=== PATIENT | female | born 1975 | race Caucasian/White ===

== ENCOUNTER → 2016-11-30 | Outpatient (CLI) | payer OTHER ==
--- NOTE | 2016-12-01 09:38 | MA ---
Digital screening mammogram bilateral with tomosynthesis 11/30/2016 8:21 History:Routine screening. Comparison: October 03, 2015, September 28, 2014. Technique: Standard digital cephalocaudal and tomosynthesis mediolateral oblique projections are obt ained. This examination is processed by the [employer] computer-aided detection system. Findings: Breast density: Type II No spiculated masses, malignant type microcalcifications, or mammographic features of malignancy michael ntified. IMPRESSION: No mammographic features of malignancy. BI-RADS 1: Negative mammogram. Recommendation: Routine screening mammography in one year. [facility] will send a result letter to the patient. Negative mammography should not preclude additional workup of a clinically suspicious finding. The patient's information is entered into a reminder system with a target due date for her next mammo gram.
== END ==
LOC: FIMAGING 08:19
DX: Z12.31 Encounter for screening mammogram for malignant neoplasm of breast (principal)
CPT/HCPCS: G0202

== ENCOUNTER → 2018-04-11 | Outpatient (CLI) | payer OTHER | LOC: FIMAGING 08:59 | PROVIDERS: ATTEND Family Medicine | DX: Z12.31 Encounter for screening mammogram for malignant neoplasm of breast (principal) ==